=== PATIENT | female | born 1940 | race African-American/Black ===

== ENCOUNTER 2021-02-09 06:15 | Inpatient (IN) | payer MEDICARE ==
[~2021-02-09] VITALS: Ht 167.6 cm; Wt 47.6 kg
[2021-02-09] MEDS ORDERED: MORPHINE SULFATE 4 MG/ML CPJ (NOT FOR IM USE) IV STA (07:11)
[2021-02-09] MEDS ORDERED: ONDANSETRON HCL 4MG/2ML INJ IV STA (07:11)
[2021-02-09 07:51] LABS: CHLORIDE 103 mEq/L (98-107)
[2021-02-09 07:54] LABS: BASOPHILS % 0.2 % (0.0-2.0); EOSINOPHILS % 0.6 % (0.0-5.0); HEMATOCRIT. 39.4 % (36.0-48.0); HEMOGLOBIN. 12.8 g/dL (12.0-16.0); LYMPHOCYTES % 12.9 % (20.0-50.0); MEAN CORPUSCULAR HEMOGLOBIN 30.8 pg (28.0-32.0); MEAN CORPUSCULAR VOLUME 94.5 fL (81.0-99.0); MEAN PLATELET VOLUME 9.9 fl (7.4-10.4); MONOCYTES % 3.5 % (2.0-8.0); NEUTROPHILS % 82.8 % (40.0-76.0); PLATELET 214 x1000/uL (130-400); RED BLOOD CELL COUNT 4.17 mill/uL (4.2-5.4); RED CELL DISTRIBUTION WIDTH 13.3 % (11.6-14.6)
[2021-02-09 08:08] LABS: PROTHROMBIN TIME 11.2 sec (9.6-11.0)
[2021-02-09] MEDS ORDERED: MORPHINE SULFATE 4 MG/ML CPJ (NOT FOR IM USE) IV ONE ×2 (08:30→09:45)
[2021-02-09] MEDS ORDERED: SODIUM CHLORIDE 0.9% 1000ML BAG (SEPSIS BOLUS) IV ONE (09:00)
[2021-02-09] MEDS ORDERED: HYDROMORPHONE HCL/PF 2MG/ML CPJ IV ONE (11:15)
[2021-02-09] MEDS ORDERED: LIDOCAINE HCL 2% JELLY 5ML TOP NR (11:30)
[2021-02-09] MEDS ORDERED: PIPERACILLIN/TAZ 3.375G PREMIX 50 ML IV ONE (11:45)
[2021-02-09 12:00] VITALS: BP 128/53
[2021-02-09 12:19] LABS: HEMATOCRIT 39.6 % (36.0-48.0); HEMOGLOBIN 12.9 g/dL (12.0-16.0); MEAN CORPUSCULAR HEMOGLOBIN 30.6 pg (28.0-32.0); MEAN CORPUSCULAR VOLUME 94.2 fL (81.0-99.0); PLATELET 237 x1000/uL (130-400); RED CELL DISTRIBUTION WIDTH 13.2 % (11.6-14.6)
[2021-02-09] MEDS: SODIUM CHLORIDE 0.45% 1,000 ML IV SCH (14:15)
[2021-02-09] MEDS ORDERED: ONDANSETRON HCL 4MG/2ML INJ IV PRN (14:15)
[2021-02-09] MEDS ORDERED: MORPHINE SULFATE 2 MG/ML CPJ (NOT FOR IM USE) IV PRN (14:15)
[2021-02-09] MEDS ORDERED: NALOXONE HCL 0.4MG/ML VIAL IV PRN (14:30)
[2021-02-09 14:32] VITALS: BP 122/54
[2021-02-09 14:33] VITALS: BP 122/54
[2021-02-09 20:00] VITALS: BP 135/60
[2021-02-09] MEDS: PIPERACILLIN/TAZOBACTAM 3.375 G in DEXTROSE 5% WATER 50 ML IV SCH (23:06)
[2021-02-10] VITALS: BP 121/58
[2021-02-10] MEDS: SODIUM CHLORIDE 0.45% 1,000 ML IV SCH (03:35)
[2021-02-10 04:00] VITALS: BP 116/52
[2021-02-10] MEDS: PIPERACILLIN/TAZOBACTAM 3.375 G in DEXTROSE 5% WATER 50 ML IV SCH (06:09)
[2021-02-10 06:42] LABS: HEMATOCRIT. 47.7 % (36.0-48.0); HEMOGLOBIN. 15.5 g/dL (12.0-16.0); MEAN CORPUSCULAR HEMOGLOBIN 30.6 pg (28.0-32.0); MEAN CORPUSCULAR VOLUME 94.1 fL (81.0-99.0); MEAN PLATELET VOLUME 9.2 fl (7.4-10.4); PLATELET 234 x1000/uL (130-400); RED BLOOD CELL COUNT 5.07 mill/uL (4.2-5.4); RED CELL DISTRIBUTION WIDTH 13.4 % (11.6-14.6)
[2021-02-11 10:05] LABS: PLATELET ESTIMATE NORMAL
== END 2021-02-10 09:20 | disposition left against medical advice (07) | DRG 872 ==
LOC: ER 06:51 → 6WST 11:13 → EDBEDREQTM 11:22 → EDBEDREQ 11:22 → ENRESERV 12:02 → 6WST 14:20
PROVIDERS: ADMIT Internal Medicine Pulmonary Disease; ATTEND Internal Medicine Pulmonary Disease
PROC: 0D9670Z Drainage of Stomach with Drainage Device, Via Natural or Artificial Opening (ICD-10-PCS; principal; 2021-02-09)
DX: A41.9 Sepsis, unspecified organism (principal); K56.609 Unspecified intestinal obstruction, unspecified as to partial versus complete obstruction; I10 Essential (primary) hypertension; Z98.891 History of uterine scar from previous surgery; R40.2243 Coma scale, best verbal response, confused conversation, at hospital admission
CPT/HCPCS: 36415; 71045; 71260; 74177; 80048; 80053; 83036; 83605; 83880; 84484; 85025; 85027; 93005; 99291; J1170; J2270; J2405; J2543; J7030; J7060